=== PATIENT | female | born 1995 | race Caucasian/White ===

== ENCOUNTER 2022-12-23 02:34 | Emergency (ER) | payer SELFPAY ==
[~2022-12-23] VITALS: Ht 157.5 cm; Wt 60.0 kg
[2022-12-23 02:39] VITALS: O2SAT 98
[2022-12-23] MEDS ORDERED: ONDANSETRON HCL 4MG/2ML INJ IV STA (03:00)
[2022-12-23] MEDS ORDERED: SODIUM CHLORIDE 0.9% 1,000 ML IV ONE (03:00)
[2022-12-23 03:42] LABS: BASOPHILS % 0.5 % (0.0-2.0); DIFFERENTIAL COMMENT 0; EOSINOPHILS % 0.5 % (0.0-5.0); HEMATOCRIT. 37.8 % (36.0-48.0); HEMOGLOBIN. 12.3 g/dL (12.0-16.0); LYMPHOCYTES % 45.4 % (20.0-50.0); MEAN CORPUSCULAR HEMOGLOBIN 25.7 pg (28.0-32.0); MEAN CORPUSCULAR HGB CONC 32.5 g/dL (31.0-37.0); MEAN CORPUSCULAR VOLUME 79.1 fL (81.0-99.0); MEAN PLATELET VOLUME 7.2 fl (7.4-10.4); MONOCYTES % 5.9 % (2.0-8.0); NEUTROPHILS % 47.7 % (40.0-76.0); PLATELET 317 x1000/uL (130-400); RED BLOOD CELL COUNT 4.78 mill/uL (4.2-5.4); RED CELL DISTRIBUTION WIDTH 13.5 % (11.6-14.6); WHITE BLOOD COUNT 6.8 x1000/uL (4.5-11.0)
[2022-12-23 03:43] LABS: *BARBITURATES SCREEN URINE NEGATIVE (NEGATIVE); *BENZODIAZEPINES SCREEN URINE NEGATIVE (NEGATIVE); ACETAMINOPHEN <2 ug/mL ug/mL (10-30); ALANINE AMINOTRANSFERASE 14 IU/L (13-61); ALBUMIN 3.7 g/dL (3.4-5.0); ASPARTATE AMINOTRANSFERASE 14 IU/L (15-37); CALCIUM 8.4 mg/dL (8.5-10.1); CARBON DIOXIDE 21 mEq/L (21-32); CHLORIDE 115 mEq/L (98-107); CREATININE 0.7 mg/dL (0.6-1.3); GLUCOSE 108 mg/dL (70-105); INDEX HEMOLYSI 1 (1-3); INDEX ICTERIC 1 (1-4); INDEX LIPEMIC 1 (1-3); POTASSIUM 3.4 mEq/L (3.5-5.1); SODIUM 147 mEq/L (136-145); UREA NITROGEN BLOOD 5 mg/dL (7-21)
[2022-12-23 03:46] LABS: BILIRUBIN TOTAL 0.1 mg/dL (0.1-1.0); PROTEIN TOTAL 7.7 g/dL (6.0-8.3)
[2022-12-23 04:06] LABS: HCG SCREEN NEGATIVE
[2022-12-23 05:01] LABS: LACTIC ACID 2.9 mmol/L (0.4-2.0)
[2022-12-23 05:10] LABS: *AMPHETAMINES SCREEN URINE NEGATIVE (NEGATIVE); *COCAINE SCREEN URINE NEGATIVE (NEGATIVE); ECSTASY MDMA SCREEN URINE NEGATIVE (NEGATIVE)
[2022-12-23 05:11] LABS: CANNABINOID URINE SCREEN PRESUMTIVE POSITIVE (NEGATIVE); OPIATES URINE SCREEN NEGATIVE (NEGATIVE); PHENCYCLIDINE URINE SCREEN NEGATIVE (NEGATIVE)
[2022-12-23 09:35] VITALS: BP 99/50; PULSE 81; RESP 19; TEMP 97.1
[2022-12-24 00:06] LABS: ETHANOL BLOOD 417 mg/dL (<10)
== END 2022-12-23 09:36 | disposition home or self-care (01) ==
LOC: ER 02:34
DX: R41.82 Altered mental status, unspecified (principal); F10.10 Alcohol abuse, uncomplicated; Y90.9 Presence of alcohol in blood, level not specified
CPT/HCPCS: 80053; 80305; 80307; 80329; 80320; 84703; 83605; 85025; 36415; 70450; 96361; 96374; 99285; J2405; J7030; Z7610; G0480